=== PATIENT | male | born 1985 ===

== ENCOUNTER 2025-05-27 15:36 | Emergency (ER) | payer OTHER ==
[~2025-05-27] VITALS: Ht 182.9 cm; Wt 76.8 kg
[2025-05-27 16:08] VITALS: BP 126/68; PULSE 90; RESP 18; TEMP 98.4; O2SAT 99
== END 2025-05-27 16:08 | disposition still patient (30) ==
LOC: EMS 15:36
DX: M25.511 Pain in right shoulder (principal); M25.561 Pain in right knee; E11.9 Type 2 diabetes mellitus without complications; F12.90 Cannabis use, unspecified, uncomplicated; F17.210 Nicotine dependence, cigarettes, uncomplicated; Z98.890 Other specified postprocedural states; Y04.0XXA Assault by unarmed brawl or fight, initial encounter; W19.XXXA Unspecified fall, initial encounter; Y93.89 Activity, other specified; Y92.89 Other specified places as the place of occurrence of the external cause; Y99.8 Other external cause status
CPT/HCPCS: 29505; 99284; 73000-TC; 73030-TC; 73562-TC; Z7502